=== PATIENT | female | born 2000 | race African-American/Black ===

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

== ENCOUNTER 2024-03-14 19:57 | Emergency (ER) | payer MEDICAID ==
[~2024-03-14] VITALS: Ht 172.7 cm; Wt 70.0 kg
[2024-03-14 19:59] VITALS: BP 126/89; PULSE 90; RESP 19; O2SAT 99
[2024-03-14 20:57] LABS: BASOPHILS % 0.3 % (0.0-2.0); EOSINOPHILS % 0.3 % (0.0-5.0); HEMATOCRIT. 42.9 % (36.0-48.0); HEMOGLOBIN. 14.5 g/dL (12.0-16.0); LYMPHOCYTES % 8.4 % (20.0-50.0); MEAN CORPUSCULAR HEMOGLOBIN 30.7 pg (28.0-32.0); MEAN CORPUSCULAR HGB CONC 33.8 g/dL (31.0-37.0); MEAN CORPUSCULAR VOLUME 90.8 fL (81.0-99.0); MEAN PLATELET VOLUME 8.8 fl (7.4-10.4); MONOCYTES % 5.4 % (2.0-8.0); NEUTROPHILS % 85.6 % (40.0-76.0); PLATELET 241 x1000/uL (130-400); RED BLOOD CELL COUNT 4.72 mill/uL (4.2-5.4); RED CELL DISTRIBUTION WIDTH 15.5 % (11.6-14.6); WHITE BLOOD COUNT 11.9 x1000/uL (4.5-11.0)
[2024-03-14 21:02] LABS: CHLORIDE 105 mEq/L (98-107); POTASSIUM 3.9 mEq/L (3.5-5.1); SODIUM 138 mEq/L (136-145)
[2024-03-14 21:03] LABS: CALCIUM 10.1 mg/dL (8.7-10.4); CARBON DIOXIDE 26 mEq/L (21-32)
[2024-03-14 21:08] LABS: GLUCOSE 98 mg/dL (70-105); UREA NITROGEN BLOOD 10 mg/dL (9-23)
[2024-03-14 23:33] LABS: CLARITY URINE CLEAR (CLEAR); COLOR URINE DARK YELLOW (YELLOW); GLUCOSE URINE NEGATIVE (NEGATIVE); KETONES URINE 1+ (NEGATIVE); LEUKOCYTE ESTERASE URINE NEGATIVE (NEGATIVE); NITRITE URINE NEGATIVE (NEGATIVE); OCCULT BLOOD URINE NEGATIVE (NEGATIVE); PH URINE 6.5 (4.5-8.0); PROTEIN URINE TRACE (NEGATIVE); SPECIFIC GRAVITY URINE 1.031 (1.005-1.030)
[2024-03-15 00:08] LABS: TROPONIN I HIGH SENSITIVITY < 4 ng/L (3.0-34)
[2024-03-15 01:25] VITALS: TEMP 99.1
[2024-03-15] MEDS: ACETAMINOPHEN 500MG TABLET PO NR (01:25)
[2024-03-15 02:05] LABS: RBC URINE NONE SEEN /hpf (0-2); WBC URINE 0-2 /hpf (0-2)
[2024-03-15 02:06] LABS: BACTERIA URINE TRACE; SQUAMOUS EPITHELIAL CELL URINE FEW /lpf (RARE/1+)
== END 2024-03-15 01:35 | disposition home or self-care (01) ==
LOC: ER 19:57
DX: B34.9 Viral infection, unspecified (principal); R07.89 Other chest pain
CPT/HCPCS: 36415; 71045; 80048; 81003; 84484; 85025; 99284

== ENCOUNTER 2024-10-22 19:29 | Emergency (ER) | payer MEDICAID ==
[~2024-10-22] VITALS: Ht 167.6 cm; Wt 64.0 kg
[~2024-10-22 19:29] MED LIST: NITR-87 MT
[2024-10-22 19:31] VITALS: O2SAT 98
[2024-10-22 20:06] VITALS: BP 117/83; PULSE 74; RESP 16; TEMP 36.8; O2SAT 100
[2024-10-22 20:52] LABS: CLARITY URINE CLEAR (CLEAR); COLOR URINE YELLOW (YELLOW); GLUCOSE URINE NEGATIVE (NEGATIVE); KETONES URINE TRACE (NEGATIVE); LEUKOCYTE ESTERASE URINE NEGATIVE (NEGATIVE); NITRITE URINE NEGATIVE (NEGATIVE); OCCULT BLOOD URINE NEGATIVE (NEGATIVE); PH URINE 6.5 (4.5-8.0); PROTEIN URINE NEGATIVE (NEGATIVE); SPECIFIC GRAVITY URINE 1.025 (1.005-1.030)
[2024-10-22] MEDS ORDERED: VALA100044 MT (20:58)
== END 2024-10-22 21:11 | disposition home or self-care (01) ==
LOC: ER 19:29
DX: A60.09 Herpesviral infection of other urogenital tract (principal); L08.9 Local infection of the skin and subcutaneous tissue, unspecified; F12.90 Cannabis use, unspecified, uncomplicated; Z79.624 Long term (current) use of inhibitors of nucleotide synthesis
CPT/HCPCS: 81003; 99283